=== PATIENT | female | born 1995 | race Caucasian/White ===

== ENCOUNTER 2021-07-11 21:29 | Emergency (ER) | payer SELFPAY ==
[~2021-07-11] VITALS: Ht 162.6 cm; Wt 59.0 kg
[2021-07-11 23:02] LABS: BASOPHILS % 0.1 % (0.0-2.0); EOSINOPHILS % 1.1 % (0.0-5.0); HEMATOCRIT. 37.8 % (36.0-48.0); LYMPHOCYTES % 7.8 % (20.0-50.0); MEAN CORPUSCULAR HEMOGLOBIN 28.2 pg (28.0-32.0); MEAN CORPUSCULAR VOLUME 81.8 fL (81.0-99.0); MEAN PLATELET VOLUME 8.1 fl (7.4-10.4); MONOCYTES % 3.9 % (2.0-8.0); NEUTROPHILS % 87.1 % (40.0-76.0); PLATELET 209 x1000/uL (130-400); RED BLOOD CELL COUNT 4.62 mill/uL (4.2-5.4); RED CELL DISTRIBUTION WIDTH 13.4 % (11.6-14.6)
[2021-07-11 23:06] LABS: CHLORIDE 103 mEq/L (98-107)
[2021-07-11] MEDS ORDERED: LORAZEPAM 0.5MG TABLET PO ONE (23:15)
[2021-07-11] MEDS ORDERED: CALCIUM 1250MG TABLET (500MG ELEMENTAL CALCIUM) PO ONE (23:45)
[2021-07-11] MEDS ORDERED: MAGNESIUM GLUCONATE 500MG TABLET PO SCH (23:45)
[2021-07-11] MEDS ORDERED: MAGN500T3 MT (23:52)
[2021-07-11] MEDS ORDERED: CALC-21 PO (23:52)
[2021-07-12 00:55] VITALS: BP 105/62
== END 2021-07-12 01:11 | disposition home or self-care (01) ==
LOC: ER 21:29
DX: R25.2 Cramp and spasm (principal)
CPT/HCPCS: 36415; 80053; 83735; 85025; 93005; 99284